=== PATIENT | female | born 1940 | race Caucasian/White ===

== ENCOUNTER 2018-07-22 16:12 | Emergency (ER) | payer OTHER ==
[~2018-07-22] VITALS: Ht 154.9 cm; Wt 54.4 kg
[~2018-07-22 16:12] MED LIST: ASA81BEC PO; AZITHROMYCIN 2250 MG PO; BACTRIM; BONIVA; BREO ELLIPTA 11 EACH INH; CARDIZEM CD300 MG PO; CEFDINIR300 MG PO; CHANTIX0.5 MG PO; CLEOCIN HCL150 MG PO; COLACE100 MG PO; COREG3.125 MG PO; CYMBALTA20 MG PO; DOXYCYCLINE 10100 MG PO; DUONEB 2.5-0.5 M3 ML INH; ECOTRIN325 MG PO; ELIQUIS5 MG PO; ENOXAPARIN60 MG/0.1 SUBQ; IMDUR; IMDUR PO; K-DUR 20 MEQ T20 MEQ PO; KEFLEX500 M1 PO; KEFLEX500 MG PO; LASIX 20 MG TAB20 MG PO; LASIX 40 MG TAB40 M2 PO; LIPITOR20 MG PO; MACROBID 100 M100 M1 PO; MACROBID 100 M100 M2 PO; MELATONIN5 M1 PO; MILK OF MA2400 MG/10 PO; MIRALAX17 GM PO; NITROGLYCERIN0.4 MG SUBLING; NORCO 5-325 TA1 EACH PO; OXYCODONE HCL 55 MG PO; PANTOPRAZOLE SO40 M1 PO; PERCOCET 5-3251 EACH PO; PHENERGAN 25 MG25 M1 PO; PREDNISONE 10 M10 MG PO; PRILOSEC40 MG PO; PROTONIX40 M1 PO; SINGULAIR 10 MG10 M1 PO; TRAMADOL 50 MG50 MG PO; TYLENOL325 MG PO; ULTRAM 50MG TAB50 MG PO; VENTOLIN HFA 1818 GM INH; VICODIN; XANAX 0.25 MG0.25 MG PO; ZOLOFT100 MG PO; ZOLOFT50 MG PO; ZPAK PO
[2018-07-22] MEDS ORDERED: FOLGARD TABLET1 EAC1 PO (16:32)
[2018-07-22] MEDS ORDERED: TRAMADOL 50 MG50 MG PO (16:32)
[2018-07-22] MEDS ORDERED: PREDNISONE 10 M10 MG PO (16:32)
[2018-07-22 18:26] LABS: ABSOLUTE BASOPHILS 0.1 thou/uL (0.0-0.2); ABSOLUTE EOSINOPHILS 0.3 thou/uL (0.0-0.7); ABSOLUTE LYMPHOCYTES 3.3 thou/uL (0.8-5.3); ABSOLUTE MONOCYTES 1.2 thou/uL (0.0-1.2); ABSOLUTE NEUTROPHILS 5.9 thou/uL (1.6-8.1); BASOPHILS 1.2 %; EOSINOPHILS 2.9 %; HEMATOCRIT 35.4 % (37.0-47.0); HEMOGLOBIN 11.6 gm/dL (12.0-15.0); LYMPHOCYTES 30.7 %; MCH 32.9 pg (26.0-34.0); MCHC 32.8 g/dL (28.0-37.0); MCV 100.3 fL (80.0-100.0); MONOCYTES 10.6 %; MPV 8.9 fl. (7.2-11.1); NUCLEATED RBCS 0 /100WBC; PLATELET COUNT* 288 thou/uL (150-400); POLYS 54.6 %; RBC 3.53 mil/uL (4.20-5.00); RDW-CV 15.6 % (10.5-14.5); WBC 10.8 thou/uL (4.0-11.0)
[2018-07-22 18:34] LABS: NT-PRO BRAIN NAT PEPTIDE 1293 pg/mL (<300); TROPONIN-I LEVEL <0.06 ng/mL (<0.06)
[2018-07-22 18:36] LABS: ANION GAP 9 mmol/L (7-16); BUN 24 mg/dL (7-18); CALCIUM 8.5 mg/dL (8.5-10.1); CHLORIDE 109 mmol/L (98-107); CO2 26 mmol/L (21-32); CREATININE 0.7 mg/dL (0.6-1.3); GLUCOSE 87 mg/dL (70-99); POTASSIUM 4.1 mmol/L (3.5-5.1); SODIUM 144 mmol/L (136-145)
[2018-07-22 18:50] LABS: ALBUMIN 2.7 g/dL (3.4-5.0); ALKALINE PHOSPHATASE 75 U/L (46-116); LIPASE 70 U/L (73-393); SGOT 15 U/L (15-37); SGPT 15 U/L (30-65); TOTAL BILIRUBIN 0.4 mg/dL (<0.1-1.0); TOTAL PROTEIN 5.9 g/dL (6.4-8.2)
[2018-07-22 18:56] LABS: URINE BILIRUBIN NEGATIVE (Negative); URINE BLOOD TRACE (Negative); URINE CLARITY CLEAR; URINE COLOR YELLOW; URINE GLUCOSE-RANDOM NEGATIVE (Negative); URINE KETONES TRACE (Negative); URINE LEUKOCYTES TRACE (Negative); URINE NITRITE POSITIVE (Negative); URINE PROTEIN NEGATIVE (Negative); URINE UROBILINOGEN 0.2 E.U./dl (0.2-1.0)
[2018-07-22 19:20] LABS: AMORPHOUS URATES Few /LPF (None Seen); BACTERIA >30 Many /HPF (None Seen); HYALINE CASTS 0-3 Few /LPF (None Seen); MUCUS None Seen strn/LPF (None Seen); SQUAMOUS 0-3 Few /LPF (0-3); URINE WBC 0-5 Rare /HPF (0-5)
[2018-07-22 19:21] LABS: URINE RBC 0-2 Rare /HPF (0-2)
[2018-07-22] MEDS ORDERED: PERCOCET PO (19:23)
[2018-07-22] MEDS ORDERED: MACROBID 100 M100 M2 PO (19:23)
[2018-07-22 19:38] VITALS: BP 153/71
--- NOTE | 2018-07-23 11:09 | EKG ---
[place] [address] ELECTROCARDIOGRAM REPORT Name: ADAMPIYUSH STEVE Room: [facility]#: [id number] Admission: 07/22/18 Attend Phys: Discharge: 07/22/18 Date of : 36 Report #: [id number] THIS REPORT FOR: //name// [facility] ED Test Date: 2018-07-22 Test Time: 17:09:49 Pat Name: PIYUSH MEDINA Department: Room: Gender: F Reconciliation Manager: Belén SANCHEZ : 1940 Requested By: Lisa Hahn Order Number: [id number] MD: Dane Dash Measurements Intervals [place] Rate: 78 P: 5 OH: 116 QRS: -16 QRSD: 88 T: 25 QT: 381 QTc: 434 Interpretive Statements Sinus rhythm poor r wave progression Borderline short [place] interval LVH by voltage Compared to ECG 09/29/2017 13:35:35 Left ventricular hypertrophy now present Sinus tachycardia no longer present Electronically Signed On 07-23-2018 11:09:39 CDT by Dane Dash [email or web address] <ELECTRONICALLY SIGNED> By: Dane Dash MD, FACC 07/23/18 1109 1709 1709 Dane Dash MD, [facility] /EPI
== END 2018-07-22 20:07 | disposition home or self-care (01) ==
LOC: M.ERS 16:12
PROVIDERS: Nurse Practitioner Family
DX: S20.212A Contusion of left front wall of thorax, initial encounter (principal); S20.211A Contusion of right front wall of thorax, initial encounter; N39.0 Urinary tract infection, site not specified; M79.7 Fibromyalgia; I48.91 Unspecified atrial fibrillation; J44.9 Chronic obstructive pulmonary disease, unspecified; I50.9 Heart failure, unspecified; Z96.651 Presence of right artificial knee joint; Z88.1 Allergy status to other antibiotic agents; Z91.041 Radiographic dye allergy status; Z88.8 Allergy status to other drugs, medicaments and biological substances; W18.39XA Other fall on same level, initial encounter; Y93.89 Activity, other specified; Y92.89 Other specified places as the place of occurrence of the external cause; Y99.8 Other external cause status